=== PATIENT | female | born 1965 | race Caucasian/White ===

== ENCOUNTER → 2016-07-31 | Outpatient (CLI) | payer BC ==
--- NOTE | ~2016-07-31 | MY11 ---
[facility] A Service of [facility] RADIOLOGY TEXT RESULTS PATIENT: JASPREET DEVLIN LOCATION: [facility] : 67 UNIT #: [id number] AGE: [address]: JONO SINGH APRN SEX: F ORDER DR: [id number] [facility]. [place], [place] [address] [id number] O MR#: [id number] Acc #: [id number] NAME: JASPREET DEVLIN : 1965 SEX: F STUDY DATE/TIME: 07/31/2016 9:50 UNIT: [facility] ROOM: STUDY DESCRIPTION: MY Mammogram Screening Dig Jong Attending Physician: Jono Singh Referring Physician: Jono Singh Ordering Physician: Zev Singh M.D. Primary Care Physician: Orlin Sanz M.D. MEDICAL IMAGING REPORT This report is preliminary unless electronic signature is present EXAM Bilateral digital screening mammogram with CAD Date: 07/31/2016 HISTORY No personal or family history of breast cancer or current complaints. COMPARISON Bilateral screening mammogram performed at [facility] 08/03/2015. SPECIAL COMMENT: This study was originally performed on 07/31/2016 and was submitted for interpretation today, 08/06/2016 after the arrival of outside comparison studies. FINDINGS CC and MLO views were obtained of each breast utilizing digital technique and reviewed with an FDA-approved CAD device. Scattered fibroglandular densities are present bilaterally, greatest in the upper outer quadrant of the right breast. The parenchymal pattern appears stable. No new or developing nodules are seen. There is no architectural distortion or suspicious cluster of microcalcification. No abnormal skin thickening or nipple retraction is identified. IMPRESSION BIRADS 1. Negative screening mammogram. Patients over the age of 40 are entered into a reminder system with target due date for the next mammogram. A result letter will also be sent to the patient. [facility] A Service of [facility] RADIOLOGY TEXT RESULTS PATIENT: JASPREET DEVLIN LOCATION: [facility] : 67 UNIT #: [id number] AGE: [address]: JONO SINGH APRN SEX: F ORDER DR: Routine screening mammogram recommended in year. Dictated by... Maria D Bass M.D. THIS IS AN ELECTRONICALLY VERIFIED REPORT Maria D Bass M.D. at 08/07/2016 7:03 AM BETH/luca TD: 08/06/2016 12:35 JOB #: [id number] MEDICAL IMAGING REPORT Page 1 of 1 COPY
== END | disposition home or self-care (01) ==
LOC: CWCC 09:26
DX: Z12.31 Encounter for screening mammogram for malignant neoplasm of breast (principal)
CPT/HCPCS: G0202

== ENCOUNTER → 2016-10-22 | Outpatient (CLI) | payer BC ==
--- NOTE | ~2016-10-22 | US6 ---
[facility] A Service of [facility] & [facility] RADIOLOGY TEXT RESULTS PATIENT: JASPREET DEVLIN LOCATION: [facility] : 67 UNIT #: [id number] AGE: [address]: HERNANDEZ SINGH APRN SEX: F ORDER DR: [id number] [facility] [address] [place], [place] [address] [id number] O MR#: [id number] Acc #: [id number] NAME: JASPREET DEVLIN : 1965 SEX: F STUDY DATE/TIME: 10/22/2016 10:36 UNIT: [facility] ROOM: STUDY DESCRIPTION: US Abdominal Limited Attending Physician: Zev Singh M.D. Referring Physician: Zev Singh M.D. Ordering Physician: Zev Singh M.D. Primary Care Physician: Orlin Sanz M.D. MEDICAL IMAGING REPORT This report is preliminary unless electronic signature is present EXAM Gallbladder ultrasound, 10/22/2016. HISTORY Abnormally elevated liver enzymes. FINDINGS The liver demonstrates an increase in echotexture with attenuation of the ultrasound beam characteristic of fatty infiltration. No cystic or solid mass lesions were seen in the liver. The intra and extrahepatic bile ducts are not dilated. The gallbladder is normal with no evidence of cholelithiasis, wall thickening or pericholecystic fluid. The common duct measures 5 mm. The pancreas and right kidney are normal. IMPRESSION Fatty infiltration of the liver. Otherwise, negative right upper quadrant ultrasound. Dictated by... Shad Franks M.D. THIS IS AN ELECTRONICALLY VERIFIED REPORT Shad Franks M.D. at 10/22/2016 5:06 PM SHARON/zoran TD: 10/22/2016 16:54 JOB #: [id number] MEDICAL IMAGING REPORT Page 1 of 1 COPY
== END | disposition home or self-care (01) ==
LOC: CGUS 10:17
DX: R74.8 Abnormal levels of other serum enzymes (principal); K76.0 Fatty (change of) liver, not elsewhere classified
CPT/HCPCS: 76705